=== PATIENT | male | born 1995 | race Caucasian/White ===

== ENCOUNTER 2018-01-21 21:29 | Emergency (ER) | payer SELFPAY ==
[2018-01-21] MEDS ORDERED: Bacitracin Zinc 1 Packet ONE (22:00)
== END 2018-01-21 22:05 | disposition home or self-care (01) ==
LOC: ERS 21:29
DX: L03.211 Cellulitis of face (principal); F17.210 Nicotine dependence, cigarettes, uncomplicated; F43.10 Post-traumatic stress disorder, unspecified; F22 Delusional disorders
CPT/HCPCS: 99283

== ENCOUNTER 2018-12-02 20:28 | Emergency (ER) | payer SELFPAY ==
[2018-12-02] MEDS ORDERED: Ketorolac Tromethamine 60 MG/2 ML VIAL ONE (21:39)
[2018-12-02] MEDS ORDERED: Ondansetron ODT 8 MG TAB ONE (21:39)
== END 2018-12-02 22:30 | disposition home or self-care (01) ==
LOC: ERS 20:28
DX: R51 Headache (principal); I10 Essential (primary) hypertension; F41.9 Anxiety disorder, unspecified; F43.10 Post-traumatic stress disorder, unspecified; F32.9 Major depressive disorder, single episode, unspecified; F17.210 Nicotine dependence, cigarettes, uncomplicated
CPT/HCPCS: 96372; 99284; J1885